=== PATIENT | female | born 1945 | race Hispanic/Latino ===

== ENCOUNTER 2018-03-13 16:33 | Emergency (ER) | payer MEDICARE, OTHER ==
[2018-03-13 16:35] VITALS: BMI 21.9
[2018-03-13 16:40] VITALS: RESP 18; TEMP 98.4; O2SAT 97
[2018-03-13] MEDS ORDERED: TDAP Vaccine 0.5 mL Syr IM ONE (16:54)
[2018-03-13] MEDS ORDERED: Amoxicillin-Clav 875-125 mg Tab PO STA (16:54)
[2018-03-13] MEDS ORDERED: Oxycodone/Acetaminophen 5/325 mg Tab PO STA (16:55)
--- NOTE | 2018-03-13 17:05 | ED PDOC ---
Arrival/HPI - General Chief Complaint: Bite Time Seen by Provider: 03/13/18 16:39 Historian: Patient - History of Present Illness Narrative History of Present Illness (Text): 03/13/18 16:57 72yo female with pmhx of hypertension, who present with complaint of dog bite to her right hand/wrist x 3hrs ago. States she was checking on her dog, after the dog fought with another dog and it bit her. She came to ED secondary to the pain. States the dog is up to date with it's vaccination. The patient herself is not up to date with her TD booster. She denies any other complaint. Past Medical History - Provider Review Nursing Documentation Reviewed: Yes - Infectious Disease Hx of Infectious Diseases: None - Cardiac Hx Hypertension: Yes Other/Comment: aneurysm - Neurological Other/Comment: brain tumor - benign - Hematological/Oncological Hx Blood Transfusions: Yes Hx Blood Transfusion Reaction: No - Musculoskeletal/Rheumatological Hx Falls: No - Psychiatric Hx Depression: No Hx Emotional Abuse: No Hx Physical Abuse: No Hx Substance Use: No - Surgical History Hx Cholecystectomy: Yes Hx Hysterectomy: Yes - Anesthesia Hx Anesthesia: Yes Hx Anesthesia Reactions: No Hx Malignant Hyperthermia: No - Suicidal Assessment Feels Threatened In Home Enviroment: No Family/Social History - Physician Review Nursing Documentation Reviewed: Yes Family/Social History: Unknown Family HX Smoking Status: Never Smoked Hx Alcohol Use: Yes (occassionally) Hx Substance Use: No Hx Substance Use Treatment: No Allergies/Home Meds Allergies/Adverse Reactions: Allergies No Known Allergies Allergy (Verified 02/28/15 16:42) Home Medications: Home Meds Medication Instructions Recorded Confirmed Atenolol [Tenormin] 1 tab PO DAILY 03/13/18 03/13/18 Review of Systems - Physician Review All systems were reviewed & negative as marked: Yes - Review of Systems Constitutional: Normal Eyes: Normal ENT: Normal Respiratory: Normal Cardiovascular: Normal Gastrointestinal: Normal Genitourinary Female: Normal Musculoskeletal: Normal Skin: Other (Dog bite to right wrist/hand) Neurological: Normal Endocrine: Normal Hemo/Lymphatic: Normal Psychiatric: Normal Physical Exam Vital Signs Reviewed: Yes Vital Signs Temp Pulse Resp BP Pulse Ox 03/13/18 18:59 69 18 177/95 H 97 03/13/18 16:39 98.4 F 80 18 185/95 H 97 Temperature: Afebrile Blood Pressure: Normal Pulse: Regular Respiratory Rate: Normal Appearance: Positive for: Well-Appearing, Non-Toxic, Comfortable Pain Distress: None Mental Status: Positive for: Alert and Oriented X 3 - Systems Exam Head: Present: Atraumatic, Normocephalic Pupils: Present: PERRL Extroacular Muscles: Present: EOMI Conjunctiva: Present: Normal Mouth: Present: Moist Mucous Membranes Neck: Present: Normal Range of Motion Respiratory/Chest: Present: Clear to Auscultation, Good Air Exchange. No: Respiratory Distress, Accessory Muscle Use Cardiovascular: Present: Regular Rate and Rhythm, Normal S1, S2. No: Murmurs Abdomen: No: Tenderness, Distention, Peritoneal Signs Back: Present: Normal Inspection Upper Extremity: Present: Normal Inspection. No: Cyanosis, Edema Lower Extremity: Present: Normal Inspection. No: Edema Neurological: Present: GCS=15, CN II-XII Intact, Speech Normal Skin: Present: Warm, Dry, Normal Color, Other (Superfical abrasions/puncture wounds noted to right volar/dorsal wrist and hand). No: Rashes Psychiatric: Present: Alert, Oriented x 3, Normal Insight, Normal Concentration Medical Decision Making ED Course and Treatment: 03/14/18 00:41 Pt in ED for stated history. She was NVI. radial pulse was palpable. Mild swelling of the area was noted and ice was placed. Wound was irrigated with NS , bacitracine applied and dressed. Arm placed on a sling. Right wrist xray - No acute fracture Pt placed on prophylactic abx TD booster was updated Tramadol given for pain Advised to f/u with her PMD with a week for re evaluation, otherwise return to ED for redness, purulent discharge, any new symptoms. - RAD Interpretation Radiology Orders: 03/13/18 16:53 WRIST, RIGHT 3 VIEWS [RAD] Stat - Medication Orders Current Medication Orders: Discontinued Medications Amoxicillin/Clavulanate Potassium (Augmentin 875 Mg-125 Mg Tab) 1 tab PO STAT STA PRN Reason: Protocol Stop: 03/13/18 16:55 Last Admin: 03/13/18 17:24 Dose: 1 tab Oxycodone/Acetaminophen (Percocet 5/325 Mg Tab) 1 tab PO STAT STA Stop: 03/13/18 16:56 Last Admin: 03/13/18 17:24 Dose: 1 tab MAR Pain Assessment Document 03/13/18 17:24 EQ (Rec: 03/13/18 17:24 EQ [id number] Pain Reassessment Is this a pain reassessment? No Sleep Is patient sleeping during reassessment? No Presence of Pain Presence of Pain Yes Tetanus/Reduced Diphtheria/Acell Pertussis (Boostrix Vaccine Inj) 0.5 ml IM .ONCE ONE Stop: 03/13/18 16:55 Last Admin: 03/13/18 17:24 Dose: 0.5 ml Immunization Registry Document 03/13/18 17:24 EQ (Rec: 03/13/18 17:24 EQ [id number] Immunization Registry Consent Date 03/13/18 Disposition/Present on Arrival - Present on Arrival Any Indicators Present on Arrival: No History of DVT/PE: No History of Uncontrolled Diabetes: No Urinary Catheter: No History of Decub. Ulcer: No History Surgical Site Infection Following: None - Disposition Have Diagnosis and Disposition been Completed?: Yes Diagnosis: Dog bite Disposition: HOME/ ROUTINE Disposition Time: 18:10 Patient Plan: Discharge Condition: STABLE Discharge Instructions (ExitCare): Animal Bites (DC) Additional Instructions: Keep wound clean and dry Take medication as directed and follow up with your Doctor Return to ED for any new or worsening symptoms Prescriptions: Amoxicillin/Clavulanate [Augmentin 875 MG-125 MG] 1 tab PO BID #20 tab traMADol [Ultram] 50 mg PO Q6 #10 tab Referrals: Margot Hooks MD [Staff Provider] - Follow up with primary Forms: [employer] ([place])
--- NOTE | 2018-03-13 17:57 | RAD ---
Date of service: 03/13/2018 PROCEDURE: Right Wrist Radiographs. HISTORY: wrist pain s/p dog bite COMPARISON: None. FINDINGS: BONES: Normal. No fracture. JOINTS: Osteoarthritis at [facility] 1. Remaining joint spaces and articular surfaces are preserved. SOFT TISSUES: Normal. OTHER FINDINGS: None. IMPRESSION: No acute fracture. Osteoarthritis at [facility] 1.
[2018-03-13 19:00] VITALS: BP 177/95; PULSE 69
== END 2018-03-13 19:00 | disposition home or self-care (01) ==
LOC: ED 16:33
DX: S61.451A Open bite of right hand, initial encounter (principal); W54.0XXA Bitten by dog, initial encounter; I10 Essential (primary) hypertension